=== PATIENT | female | born 1990 | race Caucasian/White ===

== ENCOUNTER 2020-09-13 12:13 | Emergency (ER) | payer BC ==
[~2020-09-13] VITALS: Ht 157.5 cm; Wt 56.7 kg
[2020-09-13 12:18] VITALS: BP 90/62; Ht 157.5 cm; Wt 56.7 kg
== END 2020-09-13 15:00 | disposition left against medical advice (07) ==
LOC: ED 12:13
DX: Z53.21 Procedure and treatment not carried out due to patient leaving prior to being seen by health care provider (principal)
CPT/HCPCS: Q0162